=== PATIENT | female | born 1970 | race Caucasian/White ===

== ENCOUNTER 2017-04-23 10:52 | Inpatient (IN) ==
[2017-04-23 11:38] LABS: MANUAL DIFF NEEDED? NO
[2017-04-23 11:40] LABS: URINE CULTURE NEEDED? NO; URINE MICRO REVIEW NEEDED? NO; URINE SOURCE CLEAN CATCH
[2017-04-23 11:49] LABS: BASO% 0.4 % (0.0-0.8); EOS# 0.11 X1000 (0.0-0.7); EOS% 0.8 % (0.0-10.0); HEMATOCRIT 39.2 % (37.0-47.0); HEMOGLOBIN 13.4 g/dL (12.0-16.0); IMM GRAN# 0.04 X1000 (0.0-0.04); IMM GRAN% 0.3 % (0.0-0.5); LYMPH# 3.71 X1000 (1.2-3.4); LYMPH% 25.4 % (20.5-51.1); MCH 32.4 PG (27-31); MCHC 34.2 g/dL (33-37); MCV 94.7 FL (81-99); MONO# 0.68 X1000 (0.11-0.59); MONO% 4.7 % (1.7-9.3); MPV 12.9 FL (7.4-10.4); NEUT% 68.4 % (42.2-75.2); PLT 373 X1000 (130-400); RBC 4.14 XMIL (4.2-5.4)
[2017-04-23 12:01] LABS: AGAP 14; ALBUMIN 4.1 g/dL (3.5-5.0); ALKALINE PHOSPHATASE 33 U/L (32-104); AMYLASE 34 U/L (20-200); BUN 12 mg/dL (8-22); CHLORIDE 99 mmol/L (98-107); COSMO 271; GOT 19 U/L (10-30); GPT 17 U/L (10-36); LIPASE 27 U/L (13-60); SODIUM 136 mmol/L (136-145); TCO2 23 mmol/L (25-35); TOTAL BILIRUBIN 0.27 mg/dL (0.20-1.00); TOTAL PROTEIN 7.4 g/dL (6.3-8.3)
[2017-04-23 12:03] LABS: BILIRUBIN URINE NEGATIVE (NEGATIVE); BLOOD URINE NEGATIVE (NEGATIVE); COLOR STRAW; GLUCOSE URINE NEGATIVE (NEGATIVE); LEUKOCYTES URINE NEGATIVE (NEGATIVE); NITRITE URINE NEGATIVE (NEGATIVE); PROTEIN URINE NEGATIVE (NEGATIVE); TURBIDITY URINE CLEAR (CLEAR); UROBILINOGEN URINE NORMAL (NORMAL)
[2017-04-23 12:06] LABS: UR EPITHELIAL CELLS <10 /HPF (<10); URINE BACTERIA 1+ /HPF; URINE RBC <10 /HPF (<10); URINE WBC <10 /HPF (<10)
--- NOTE | 2017-04-23 13:34 | Diag Imaging Result Doc PS360 ---
EXAM: ABDOMEN/PELVIS W/CONTRAST HISTORY: abd pain, LLQ TECHNIQUE: Dose reduction protocol COMPARISON: 02/11/2013 FINDINGS: There is mild fatty infiltration of the liver and there is a small cyst within the left lobe normal spleen, pancreas, gallbladder, and adrenal glands. No renal masses. No hydronephrosis. Normal aorta. No bowel obstruction. No inflammation about the cecum. The uterus is been removed. No pelvic mass. Urinary bladder is moderately distended and appears normal. No free air. Minimal inflammation in the left lower quadrant anterior to the proximal sigmoid colon. IMPRESSION: 1.Minimal left lower quadrant inflammation. This is nonspecific although it could represent minimal diverticulitis although I do not identify any adjacent diverticula. I do not believe this is extensive enough to be panniculitis. 2.Mild fatty infiltration of the liver 3.Hysterectomy Electronically signed by Vince Echeverria 04/23/2017 1:31 PM
[2017-04-23] MEDS ORDERED: DILAUDID IV ONE (14:57)
[2017-04-23] MEDS ORDERED: KEFZOL 1 GM/D5W 1 GM/50 ML IVPB IV ONE (15:01)
--- NOTE | 2017-04-23 15:12 | PROVIDER DOCUMENTATION ---
This chart was entered by Alena Fajardo Scribe, acting as scribe for Joshua Leyva MD. HPI-Abdominal Pain/GI Problem - General Chief Complaint: Abdominal Pain Stated Complaint: ABD PAIN Time Seen by Provider: 04/23/17 13:10 Source: patient Allergies/Adverse Reactions: Patient Allergies Allergy/AdvReac Type Severity Reaction Status Date / Time No Known Allergies Allergy Verified 04/23/17 13:38 Home Medications: Home Medication List Medication Instructions Recorded Confirmed Last Taken Type Estradiol [Estrace] 1 mg PO DAILY 04/23/17 04/23/17 04/23/17 07:00 History 1 MG Terbinafine HCl [Terbinafine HCl] 250 mg PO DAILY 04/23/17 04/23/17 04/23/17 07: 00 History 250 MG Topiramate [Trokendi Xr] 100 mg PO DAILY 04/23/17 04/23/17 04/23/17 07:00 History 100 MG Tramadol HCl [Tramadol HCl] 50 mg PO TID PRN 04/23/17 04/23/17 04/23/17 07:00 History 50 MG - History of Present Illness-ABD Nature of Presenting Problems: PT IS A 46YOF PRESENTING TO THE ED C/O ABD PAIN. PT STATES PAIN BEGAN YESTERDAY AND PROGRESSIVELY GOT WORSE OVERNIGHT AND THIS AM. PT DENIES VOMITING BUT STATES NO APPETITE DUE TO ABD PAIN AND NAUSEA. NO KNOWN FEVER AT THIS TIME, WITH SIGNIFICANT PAIN IN LLQ. Abdominal Pain Onset Location: reports: LLQ Pain Radiation: reports: no radiation Quality of Pain: reports: aching, sharp, throbbing Severity in ED: reports: moderate Onset/Duration: reports: 24 hours ago Timing: reports: still present Activities at Onset: reports: light activity Modifying Factors: improves with: nothing Associated Symptoms: reports: loss of appetite, malaise, nausea. denies: diarrhea, fever/chills, vomiting Last BM: this morning Dark Stools Present?: reports: none noticed Rectal Bleeding: reports: none Rectal Pain: reports: none Emesis Description: reports: none Bruising or Bleeding Gums?: No Similar Symptoms Previously?: No Recently seen or treated by another doctor?: No Review of Systems - Adult - REVIEW OF SYSTEMS - ADULT Constitutional: reports: no symptoms reported Eyes: reports: no symptoms reported Ears, Nose, Mouth & Throat: reports: no symptoms reported Cardiovascular: reports: no symptoms reported Respiratory: reports: no symptoms reported Gastrointestinal: reports: see HPI, abdominal pain, nausea, vomiting. denies: diarrhea Genitourinary: reports: no symptoms reported Musculoskeletal: reports: no symptoms reported Integumentary: reports: no symptoms reported Neurological: reports: no symptoms reported Psychiatric: reports: no symptoms reported Endocrine: reports: no symptoms reported Hematologic/Lymphatic: reports: no symptoms reported Allergic/Immunologic: reports: no symptoms reported All Other Systems: Reviewed and Negative Past History - Adult - PAST MEDICAL HISTORY-ADULT Review of Records: reports: Old Records Reviewed, Nursing Assessment Review, Medications Reviewed, Social history reviewed & non-contributory. Major Childhood Illnesses: reports: denies history Cardiovascular: reports: denies history Respiratory: reports: denies history Gastrointestinal: reports: denies history Obstetrical/Gynecological: reports: denies history Genitourinary: reports: denies history Musculoskeletal: reports: denies history Neurological: reports: denies history Endocrine/Immune: reports: denies history Other Conditions: reports: denies history - IMMUNIZATION STATUS Childhood Immunizations: See Nurse Assessment Flu Vaccine: See Nurse Assessment - FAMILY HISTORY Family History: reviewed, not pertinent - SOCIAL HISTORY Smoking: non-smoker Substance Use: denies Living Situation: family Physical Exam-General - PHYSICAL EXAM-ADULT Initial Vital Signs Reviewed: Yes - CONSTITUTIONAL General Appearance: alert, moderate distress. negative: appears well - EYES Eyes: PERRL/EOMI, pink conjunctivae - HEAD, EARS, NOSE, MOUTH & THROAT HENMT: normocephalic/atraumatic, moist mucous membranes, normal ENT inspection, TMs normal, pharynx normal - NECK Neck: non-tender, full range of motion, supple, normal inspection - RESPIRATORY Respiratory: chest non-tender, lungs clear, normal breath sounds, no pleuratic chest pain, no respiratory distress, no accessory muscle use - CARDIOVASCULAR Cardiovascular: normal peripheral pulses, regular rate, rhythm, no edema, no gallop, no JVD, no murmur - GASTROINTESTINAL (ABDOMEN) Abdominal Exam: normal bowel sounds, soft, no organomegaly, no pulsatile mass, tenderness. negative: non tender - LYMPHATIC Lymphatic: no adenopathy - MUSCULOSKELETAL Back Exam: normal inspection, no CVA tenderness, no vertebral tenderness Extremity: normal range of motion, non-tender, normal gait, normal inspection, no pedal edema, no calf tenderness, normal capillary refill, pelvis stable - SKIN Integumentary: normal color, normal turgor, warm/dry - NEUROLOGIC Neurologic: c 13 catapult operator II-XII nml as tested, grossly normal, no motor/sensory deficits - PSYCHIATRIC Psych/Mental Status: normal mood/affect, normal thought content, normal thought process, oriented x 3 Progress - PLAN OF CARE/RESULTS Progress/Plan/Lab Results: Vital Signs - 8 hr 04/23/17 11:08 Temperature 97.8 F Pulse Rate 89 Respiratory Rate 18 Blood Pressure 137/87 O2 Sat by Pulse Oximetry 100 Laboratory Results - last 24 hr 04/23/17 04/23/17 04/23/17 11:07 11:07 11:07 WBC 14.62 H RBC 4.14 L Hgb 13.4 Hct 39.2 MCV 94.7 MCH 32.4 H MCHC 34.2 RDW Std Deviation 12.4 Plt Count 373 MPV 12.9 H Immature Gran % (Auto) 0.3 Neut % (Auto) 68.4 Lymph % (Auto) 25.4 [place] % (Auto) 4.7 Eos % (Auto) 0.8 Baso % (Auto) 0.4 Immature Gran # (Auto) 0.04 Neut # (Auto) 10.02 H Lymph # (Auto) 3.71 H [place] # (Auto) 0.68 H Eos # (Auto) 0.11 Baso # (Auto) 0.06 Sodium 136 Potassium 4.0 Chloride 99 Carbon Dioxide 23 L Anion Gap 14 BUN 12 Creatinine 0.7 Estimated GFR/1.73 m2 > 60 BUN/Creatinine Ratio 17 Glucose 90 Calculated Osmolality 271 Calcium 9.0 Total Bilirubin 0.27 AST 19 ALT 17 Alkaline Phosphatase 33 Total Protein 7.4 Albumin 4.1 Globulin 3.3 Albumin/Globulin Ratio 1.2 Amylase 34 Lipase 27 Urine Source CLEAN CATCH Urine Color STRAW Urine Turbidity CLEAR Urine pH 7.0 Ur Specific [place] 1.000 Urine Protein NEGATIVE Ur Glucose (Stick) NEGATIVE Ur Ketones (Stick) NEGATIVE Urine Blood NEGATIVE Urine Nitrite NEGATIVE Urine Bilirubin NEGATIVE Urobilinogen Dipstick NORMAL Urine Leukocytes NEGATIVE Urine WBC (Auto) <10 Urine RBC (Auto) <10 U Epithel Cells (Auto) <10 Urine Bacteria (Auto) 1+ Orders Category Date Time Status Saline Loc DIRECTED Care 04/23/17 11:11 Active NPO Diet 04/23/17 11:11 Active ABDOMEN/PELVIS W/CONTRAST [CT] Stat Exams 04/23/17 12:16 Completed AMYLASE [CHEM] Stat Lab 04/23/17 11:07 Completed CBC WITH ELECTRONIC DIFF [HEME] Stat Lab 04/23/17 11:07 Completed COMPREHENSIVE METABOLIC PANEL [CHEM] Stat Lab 04/23/17 11:07 Completed LIPASE [CHEM] Stat Lab 04/23/17 11:07 Completed URINALYSIS W/POSS RFLX CULT-1 [URINALYSIS] Stat Lab 04/23/17 11:07 Completed Result Diagrams: 04/23/17 11:07 04/23/17 11:07 - CT/MRI 1 CT Study: Abdomen, Pelvis (MINIMAL LLQ INFLAMMATION, THIS IS NONSPECIFIC ALTHOUGH IT COULD REPRESENT MINIMAL DIVERTICULITIS ALTHOUGH I DO NOT IDENTIFY ANY ADJACENT DIVERTICULA. I DO NOT BELIEVE THIS IS EXTENSIVE ENOUGH TO BE PANNICULITIS, MILD FATTY LIVER) - CONSULTS/PCP/HOSPITALIST Notification #1 *Consult/PCP/Hospitalist*: AREVALO Time Discussed: 15:07 Consult Disposition: Admit Departure - Departure Date of Disposition Decision: 04/23/17 Time of Disposition Decision: 15:07 DIAGNOSIS: Diverticulitis Disposition: ADMITTED INPATIENT 09 Certified Medical Emergency: Emergent Condition: Stable Additional Freetext Instructions: ED Follow Up Instructions: You have been treated by a care provider in the Emergency Department. These instructions are being provided to you so you can have an understanding of how to care for yourself upon discharge. Upon discharge from the Emergency Department, you are responsible for making arrangements for follow-up care by a physician of your choice. Take all prescribed medications as directed. Return to the Emergency Department immediately for any new or worsening symptoms. You may call the Physician Referral phone number at [phone] to obtain a list of Physicians who are taking new patients. Referrals and Follow-Ups: Alex Larson MD [Primary Care Provider] - - Critical Care Note This patient required my direct & personal management of CC.: No This chart was documented by the indicated scribe, (Alena Fajardo Scribe) and accurately reflects the services I performed and decisions made by me, Joshua Leyva MD, as attested by the provider's signature.
[2017-04-23] MEDS ORDERED: TYLENOL PO PRN (16:46)
[2017-04-23] MEDS ORDERED: NS 1,000 ML IV ONE (16:46)
[2017-04-23] MEDS: DILAUDID IV PRN ×2 (18:07→22:59)
[2017-04-23] MEDS: ZOFRAN IV PRN ×2 (18:07→22:59)
[2017-04-23] MEDS: TORADOL IV PRN ×2 (18:09→22:59)
[2017-04-23] MEDS: FLAGYL 500 MG/NS 500 MG/100 ML IVPB IV SCH ×2 (18:15→22:57)
[2017-04-23] MEDS: LEVAQUIN 750 MG/D5W 750 MG/150 ML IVPB IV SCH (22:57)
[2017-04-23] MEDS: PRILOSEC PO SCH ×2 (22:57→23:02)
[2017-04-23] MEDS: NS 1,000 ML IV PRN (22:57)
[2017-04-24] MEDS: DILAUDID IV PRN (03:35)
[2017-04-24] MEDS: ZOFRAN IV PRN ×5 (03:35→23:46)
[2017-04-24] MEDS: TORADOL IV PRN ×3 (03:35→23:46)
--- NOTE | 2017-04-24 04:00 | HISTORY AND PHYSICAL ---
PRIMARY CARE PROVIDER: Dr. Larson. PRIMARY WEB MACHINE TENDER: Dr. Fair. CHIEF COMPLAINT: Left lower quadrant to right lower quadrant abdominal pain. HISTORY OF PRESENT ILLNESS: Ms Chantel Garsia is a 46-year-old female, with no significant medical history other than arthritis in her neck and headaches. She states that she has been having constipation since she has had a hysterectomy in the past. She is followed by Dr. Fair, who in the past has performed a colonoscopy on her. Apparently, this colonoscopy was normal according to her and her family. She states that on a daily basis, her snack at work is popcorn. She noticed yesterday morning, she started having some pain in the left lower quadrant area, and when she woke this morning, the pain was severe. She presented to Dr. Larson's office. They had her come to the ER at [facility]. She states her last bowel movements were this morning. They were 2 bowel movements, brown, normal consistency, normal color, and no pain associated. Upon palpation, she has pain that radiates to the right lower quadrant, with palpation to the left lower quadrant. Denies fever or chills at this time. Abdominal pelvic CT shows minimal left lower quadrant inflammation,, nonspecific, that could represent minimal diverticulitis. Mild fatty infiltration of the liver, and a hysterectomy. Her white blood cell count of 14,000. Her hemoglobin and hematocrit is stable. All other labs are normal. Will admit her to [facility], start her on Flagyl and Levaquin IV. We will give her IV fluid hydration and pain medication for pain control. Once stable, will need to make outpatient appointment for patient to see Dr. Fair. PAST MEDICAL HISTORY: Arthritis of the neck, headaches, and constipation. SURGICAL HISTORY: Hysterectomy and radial nerve entrapment release. SOCIAL HISTORY: Quit smoking in 1995. Prior to that, smoked 1 pack per day for 10 years. Denies alcohol or illicit drug use. FAMILY HISTORY: Mother and grandmother had coronary artery disease. REVIEW OF SYSTEMS: Fourteen point review of systems was completed, and all were negative,, except for those mentioned in the above HPI. ALLERGIES: No known drug allergies. HOME MEDICATIONS: 1. Estradiol 1 mg p.o. daily. 2. Terbinafine HCL 250 mg p.o. daily. 3. Topiramate 100 mg p.o. daily. 4. Ultram 50 mg p.o. 3 times a day p.r.n. PHYSICAL EXAMINATION: VITAL SIGNS: Temperature 97.8 degrees, heart rate 76, respiratory rate 18, blood pressure 122/70, O2 saturation 100% on room air. She is 5 feet 3 inches tall, 184 pounds, 32.6 BMI. GENERAL: Ms. Chantel Garsia is a 46-year-old female. She is in no acute distress. Able to answer all questions appropriately. HEENT: Atraumatic, normocephalic. Pupils equal, round, reactive to light. Extraocular movements intact. Mucous membranes are dry. NECK: No JVD or carotid bruits noted. CARDIOVASCULAR: S1, S2. Regular rate and rhythm. No rubs, gallops, or murmurs. PULMONARY: Clear to auscultation. Bilateral breath sounds. No accessory muscle use or work of breathing noted. GASTROINTESTINAL: Soft, tender, primarily in the left lower quadrant. Radiates to the right lower quadrant upon palpation. Not tender in the upper quadrants. Positive bowel sounds x4. EXTREMITIES: No edema noted. +2 dorsalis and radial pulses. NEUROLOGIC: Alert and oriented x4. Moves all extremities equally. SKIN: Warm, dry, intact. LABORATORY DATA: White blood cells 14,000, hemoglobin 13, hematocrit 39, platelet count 373,000. Sodium 136, potassium 4.0, BUN 12, creatinine 0.7, glucose 90, calcium 9, bilirubin 0.27, AST 19, ALT 17, albumin 4.1, amylase 34, lipase 27. Urinalysis negative, 1+ bacteria. IMAGING DATA: Abdominal pelvic CT: Minimal left lower quadrant inflammation, nonspecific, although it could represent minimal diverticulitis, but no adjacent diverticula. Not extensive enough to be panniculitis. Mild fatty infiltration of the liver. Hysterectomy. ASSESSMENT AND PLAN: 1. History of constipation since her hysterectomy, now with diverticulitis, mild, causing significant pain. Will do Flagyl and Levaquin IV. IV pain medication. IV fluid hydration. Clear liquid diet. 2. Arthritis history with headaches. Will hold home headache pain medication for now. Continue with IV pain medications as prescribed. 3. Deep venous thrombosis prophylaxis, sequential compression devices. 4. Gastrointestinal prophylaxis. Proton pump inhibitor. Dictated by DEVON Jenkins for Barney Bryan MD cc: MD Lb Garcia MD Raina Brown, CRNP Omar J. Sosa-Chirinos, MD
[2017-04-24 06:13] LABS: MANUAL DIFF NEEDED? NO
[2017-04-24 06:15] LABS: BASO% 0.3 % (0.0-0.8); EOS# 0.15 X1000 (0.0-0.7); EOS% 1.4 % (0.0-10.0); HEMATOCRIT 34.2 % (37.0-47.0); HEMOGLOBIN 11.5 g/dL (12.0-16.0); IMM GRAN# 0.01 X1000 (0.0-0.04); IMM GRAN% 0.1 % (0.0-0.5); LYMPH# 2.44 X1000 (1.2-3.4); LYMPH% 22.4 % (20.5-51.1); MCH 31.9 PG (27-31); MCHC 33.6 g/dL (33-37); MONO# 0.81 X1000 (0.11-0.59); MONO% 7.4 % (1.7-9.3); MPV 12.1 FL (7.4-10.4); NEUT% 68.4 % (42.2-75.2); PLT 276 X1000 (130-400)
[2017-04-24] MEDS: FLAGYL 500 MG/NS 500 MG/100 ML IVPB IV SCH ×3 (06:28→16:54)
[2017-04-24 06:47] LABS: AGAP 8; ALBUMIN 3.5 g/dL (3.5-5.0); ALKALINE PHOSPHATASE 27 U/L (32-104); BUN 10 mg/dL (8-22); CALCIUM 8.3 mg/dL (8.8-10.2); CHLORIDE 102 mmol/L (98-107); COSMO 274; GOT 14 U/L (10-30); GPT 12 U/L (10-36); MAGNESIUM 2.1 mg/dL (1.5-2.7); POTASSIUM 3.8 mmol/L (3.5-5.1); SODIUM 137 mmol/L (136-145); TCO2 27 mmol/L (25-35); TOTAL PROTEIN 6.1 g/dL (6.3-8.3)
[2017-04-24] MEDS ORDERED: ULTRAM PO PRN (08:14)
--- NOTE | 2017-04-24 09:43 | PROGRESS NOTE ---
DATE: 04/24/2017 SUBJECTIVE: The patient notes that she is still having a headache. Still nauseated and vomiting. Still does not feel well. PHYSICAL EXAMINATION: Vital Signs: Temperature 98, pulse 90, respiratory rate 18, BP 110/72, saturation 100% on room air. General: Patient is awake and alert. HEENT: Normocephalic. Neck: Supple. CV: Regular rate. Chest: Relatively clear. Decreased breath sounds. Abdomen: Soft. Diffusely tender. Extremities: Moves all extremities. Neurologic: No changes. DIAGNOSTIC DATA: WBCs 10. Otherwise, CBC and CMP essentially normal. ASSESSMENT: 1. Diverticulitis. 2. Chronic migraines. 3. Hypotension, likely secondary to pain medication. 4. Chronic depression. 5. Others. PLAN: We will continue patient on antibiotics. We will keep her n.p.o. currently. We will restart her home medications. Further orders as needed. cc: Gil Multani MD
[2017-04-24] MEDS: NORCO-7.5 PO PRN ×2 (09:57→20:10)
[2017-04-24] MEDS: TOPAMAX PO SCH ×2 (09:58→20:10)
[2017-04-24] MEDS: CYMBALTA PO SCH (10:00)
[2017-04-24] MEDS: ESTRACE PO SCH (10:00)
[2017-04-24] MEDS: PRILOSEC PO SCH ×2 (10:01→20:11)
[2017-04-24] MEDS: LAMISIL PO SCH (10:01)
[2017-04-24] MEDS ORDERED: DILAUDID IV PRN ×2 (12:42→21:43)
[2017-04-24] MEDS: NS 1,000 ML IV PRN ×2 (16:54→23:36)
[2017-04-24] MEDS: LEVAQUIN 750 MG/D5W 750 MG/150 ML IVPB IV SCH (23:26)
[2017-04-25] MEDS: FLAGYL 500 MG/NS 500 MG/100 ML IVPB IV SCH ×5 (02:08→23:59)
[2017-04-25] MEDS: TORADOL IV PRN ×3 (05:54→13:22)
[2017-04-25] MEDS: ZOFRAN IV PRN ×3 (05:54→13:22)
[2017-04-25 06:07] LABS: HEMATOCRIT 32.4 % (37.0-47.0); HEMOGLOBIN 10.7 g/dL (12.0-16.0); MCH 31.1 PG (27-31); MCV 94.2 FL (81-99); MPV 12.6 FL (7.4-10.4); RBC 3.44 XMIL (4.2-5.4)
[2017-04-25 06:17] LABS: AGAP 10; ALBUMIN 3.2 g/dL (3.5-5.0); ALKALINE PHOSPHATASE 25 U/L (32-104); BUN 5 mg/dL (8-22); CALCIUM 8.2 mg/dL (8.8-10.2); CHLORIDE 106 mmol/L (98-107); COSMO 271; GOT 13 U/L (10-30); GPT 11 U/L (10-36); POTASSIUM 3.4 mmol/L (3.5-5.1); SODIUM 137 mmol/L (136-145); TCO2 21 mmol/L (25-35); TOTAL PROTEIN 5.9 g/dL (6.3-8.3)
[2017-04-25] MEDS: PRILOSEC PO SCH ×2 (06:51→21:06)
[2017-04-25] MEDS: DILAUDID IV PRN (08:04)
[2017-04-25] MEDS: ESTRACE PO SCH (09:13)
[2017-04-25] MEDS: TOPAMAX PO SCH (09:13)
[2017-04-25] MEDS: CYMBALTA PO SCH (09:14)
[2017-04-25] MEDS: LAMISIL PO SCH (09:14)
[2017-04-25] MEDS: NS 1,000 ML IV PRN (11:04)
[2017-04-25] MEDS ORDERED: NS 1,000 ML IV PRN (15:11)
[2017-04-25] MEDS ORDERED: IMITREX SUBQ ONE (15:37)
[2017-04-25] MEDS ORDERED: TORADOL IV PRN (15:41)
--- NOTE | 2017-04-25 15:59 | PROGRESS NOTE ---
DATE: 04/25/2017 SUBJECTIVE: The patient has no focal complaints. OBJECTIVE: Blood pressure 112/59, heart rate of 91, respiratory rate 16, temperature 98.2 degrees. Cardiovascular: Regular rate and rhythm. Pulmonary: Bilateral breath sounds clear to auscultation. GI soft, nontender, nondistended. Bowel sounds are positive. She has complaints of headache. LABORATORY DATA: White count 10, hemoglobin and hematocrit 10 and 32, platelets 282,000. Potassium 3.4. PROBLEM LIST: 1. Diverticulitis. She seems to be doing better. Will continue antibiotics. I think we can manage to advance her diet. I do not know why she is still n.p.o. but we are going to give her clears and see how she does. 2. Migraine could be just from not eating. We will add sumatriptan in addition to her other medications and see how she does. Clinically, hopefully, could go home in the next 1-2 days. We will follow. cc: Db Hernandez MD
[2017-04-25] MEDS: LEVAQUIN 750 MG/D5W 750 MG/150 ML IVPB IV SCH (21:06)
[2017-04-26] MEDS: ZOFRAN IV PRN (04:23)
[2017-04-26] MEDS: DILAUDID IV PRN ×2 (04:24→08:08)
[2017-04-26] MEDS: FLAGYL 500 MG/NS 500 MG/100 ML IVPB IV SCH ×3 (06:11→16:46)
[2017-04-26] MEDS: PRILOSEC PO SCH (06:11)
[2017-04-26 06:37] LABS: HEMATOCRIT 33.8 % (37.0-47.0); HEMOGLOBIN 11.4 g/dL (12.0-16.0); MCH 31.5 PG (27-31); MCHC 33.7 g/dL (33-37); MCV 93.4 FL (81-99); MPV 12.6 FL (7.4-10.4); RBC 3.62 XMIL (4.2-5.4)
[2017-04-26 07:15] LABS: AGAP 12; BUN 5 mg/dL (8-22); CALCIUM 8.5 mg/dL (8.8-10.2); CHLORIDE 108 mmol/L (98-107); COSMO 281; SODIUM 142 mmol/L (136-145); TCO2 21 mmol/L (25-35)
[2017-04-26] MEDS: LAMISIL PO SCH (08:09)
[2017-04-26] MEDS: ESTRACE PO SCH (08:09)
[2017-04-26] MEDS: CYMBALTA PO SCH (08:09)
[2017-04-26] MEDS ORDERED: IMITREX SUBQ ONE ×3 (08:43→18:35)
[2017-04-26] MEDS ORDERED: PATIENT'S OWN MED PO SCH (09:00)
[2017-04-26] MEDS ORDERED: MIRALAX PO SCH (09:00)
[2017-04-26 13:38] VITALS: BP 98/58
[2017-04-26] MEDS: NORCO-7.5 PO PRN (15:20)
[2017-04-26] MEDS ORDERED: LEVAQUIN 750 MG/D5W 750 MG/150 ML IVPB IV SCH (19:47)
--- NOTE | 2017-04-26 20:33 | PROGRESS NOTE ---
DATE: 04/26/2017 SUBJECTIVE: Patient complains of headache. Still complains of some nausea, but states her abdominal pain is much better today since she started eating and drinking a little bit better. However, she did not sleep well last night secondary to her headache. States that the Imitrex Dr. Garsia gave her helped tremendously for about 8 hours and would like to try that again. OBJECTIVE: Vital Signs: Reviewed. Temperature 98 degrees, pulse 99, respiratory rate 18, blood pressure 118/76. Saturation 100% on room air. General: Patient is awake, alert, oriented. She is currently in no real respiratory distress. She does appear ill. She has a rag over her forehead. Her mom is stroking her hand. HEENT: Normocephalic, atraumatic. Neck: Supple. CARDIOVASCULAR: Regular rate. Chest: Clear. Abdomen: Soft. Extremities: Moves all extremities. Neurologic: No focal changes. Skin: Warm and dry. No rashes. ASSESSMENT: 1. Migraine headaches. Imitrex held. Discussed with patient that unfortunately repeat doses of Imitrex typically are not as effective, but certainly will try. 2. Leukocytosis, much improved. White blood cell count went from 14 down to 11. 3. Hypokalemia, resolved. 4. Mild hypocalcemia. 5. Mild protein calorie malnutrition. 6. Arthritis. 7. Diverticulitis, improved. PLAN: We will repeat Imitrex. We will change her Flagyl to p.o. 3 times a day. Advance her diet to mechanical soft. Imitrex to see if this will help. We will stop the Flagyl as it is possible this could be contributing or causing her headache, although she does have a chronic history of migraines. We will decrease her Dilaudid to p.o. [place]. We will continue intravenous Toradol. We will change Levaquin to p.o. Further orders as needed. Hopefully, she will feel better this afternoon and can discharge home. cc: Gil Multani MD
[2017-04-26] MEDS ORDERED: LEVAQUIN PO SCH (21:00)
--- NOTE | 2017-04-27 06:42 | DISCHARGE SUMMARY ---
ADMISSION DATE: 04/23/2017 DISCHARGE DATE: 04/26/2017 DISCHARGE DIAGNOSES: 1. Migraine headache much improved with Imitrex earlier today. 2. Nausea and vomiting resolved. 3. Diverticulitis stable and improved. 4. Chronic neck and back pain that certainly can be contributing to her current migraine. 5. Others. CONSULTATIONS: None. PROCEDURES: None. BRIEF HOSPITAL COURSE: The patient is a 46-year-old female who was admitted as on the [facility] and treated in the usual fashion. She was placed on IV Flagyl and Levaquin. Shortly after, she started having intense severe headache that she states is worse than her typical migraines and did not improve with anything. . gave her Imitrex which certainly helped her headache tremendously. However, the headache came back. She received another dose of Imitrex on the date of discharge. On discharge, she was awake and alert. She was in no distress. She was feeling better. She was sitting in a chair asking to go home. She tolerated the mechanical soft diet. DISPOSITION: The patient will be discharged home. She will follow up with Dr. Larson in 1 to 2 weeks. Discussed with her she needs to continued to eat a low residue low-fat diet. Continue to avoid seedy foods until she follows up with GI. Discussed with her no milk as well for the next week. She will be discharged home with [place] 7.5 mg #20 no refills as well as Levaquin one a day #5. Discussed with her that we will stop the Flagyl as it is certainly possible this could have caused or contributed to her current migraine symptoms. Also, a prescription for Imitrex injections was written. She will follow up as noted with Dr. Larson. She will need to have an outpatient colonoscopy as well. TIME SPENT: Thirty-five minutes was spent in discharge planning and instructions. cc: Gil Multani MD
== END 2017-04-26 21:20 | disposition home or self-care (01) ==
LOC: ED 10:52 → SUATTDRO 18:15 → P.MEDSURG 18:15
PROVIDERS: ATTEND Family Medicine